=== PATIENT | male | born 1945 | race Caucasian/White ===

== ENCOUNTER 2021-10-28 13:50 | Inpatient (IN) | payer MEDICARE, OTHER ==
[~2021-10-28] VITALS: Ht 167.6 cm; Wt 54.5 kg
[~2021-10-28 13:50] MED LIST: aspirin 81mg tab.chew ONE; heparin 10,000 units/1 ML INJ ONE; heparin, porcine-25,000 units/D5-250ml premix IV ONE; nitroGLYCERIN 0.4mg SUBLingual tab SL ONE
[2021-10-28] MEDS ORDERED: ondansetron/PF 4mg/2ml inj IV ONE (14:10)
[2021-10-28] MEDS ORDERED: aspirin 81mg tab.chew PO ONE (14:20)
[2021-10-28] MEDS ORDERED: nitroGLYCERIN 0.4mg SUBLingual tab SL PRN ×2 (14:20→16:30)
[2021-10-28 14:24] LABS: BASOPHILS # (AUTO) 0.1 X10'3 (0-0.2); BASOPHILS % (AUTO) 0.9 % (0-1); EOSINOPHILS % (AUTO) 0.5 % (0-6); HEMATOCRIT 32.9 % (42.0-52.0); HEMOGLOBIN 11.2 g/dl (14.0-17.9); LYMPHOCYTES # (AUTO) 4.8 X10'3 (1.1-4.8); LYMPHOCYTES % (AUTO) 49.1 % (21-51); MEAN CORPUSCULAR HGB CONC 34.2 g/dL (33.0-36.5); MEAN CORPUSCULAR VOLUME 96.5 FL (78-98); MEAN PLATELET VOLUME 8.5 FL (7.4-10.4); MONOCYTES # (AUTO) 0.7 X10'3 (0-0.9); MONOCYTES % (AUTO) 6.8 % (2-12); NEUTROPHILS # (AUTO) 4.2 X10'3 (1.8-7.7); NEUTROPHILS % (AUTO) 42.7 % (42-75); PLATELET COUNT 303 X10'3 (140-440); RED BLOOD COUNT 3.41 X10'6 (4.70-6.10); RED CELL DISTRIBUTION WIDTH 16.1 % (11.5-14.5); WHITE BLOOD COUNT 9.8 X10'3 (4.5-11.0)
[2021-10-28 14:35] LABS: ALANINE AMINOTRANSFERASE 42 U/L (12-78); ALBUMIN 3.6 G/DL (3.4-5.0); ALBUMIN/GLOBULIN RATIO 1.1 (1.1-1.5); ALKALINE PHOSPHATASE 114 IU/L (46-116); ANION GAP 11 (8-16); ASPARTATE AMINO TRANSFERASE 30 U/L (10-37); BILIRUBIN,TOTAL 1.2 MG/DL (0.1-1.0); BLOOD UREA NITROGEN 18 MG/DL (7-18); BUN/CREATININE RATIO 17.1 (5.4-32.0); CALCIUM 8.6 MG/DL (8.5-10.1); CHLORIDE 107 MMOL/L (99-107); CREATININE 1.05 MG/DL (0.60-1.10); GLUCOSE 137 MG/DL (70-104); POTASSIUM 3.4 MMOL/L (3.5-5.1); SODIUM 141 MMOL/L (135-145); TOTAL CARBON DIOXIDE 22.7 MMOL/L (24-32); eGFR 68 ML/MIN
[2021-10-28] MEDS ORDERED: morphine 4 MG/ML inj SYRINge IV ONE (14:35)
[2021-10-28] MEDS ORDERED: iohexol 350MG/ML 100ml bottle IV ONE (14:40)
[2021-10-28] MEDS ORDERED: CLOP75TA33 PO (15:30)
[2021-10-28] MEDS ORDERED: ATOR40TA7 PO (15:30)
[2021-10-28] MEDS ORDERED: NITR0.4T51 SL (15:30)
[2021-10-28] MEDS ORDERED: LORazepam 2 mg/ml vial IV ONE (15:50)
[2021-10-28] MEDS ORDERED: potassium Cl 20 mEq SR tablet PO PRN ×2 (16:25)
[2021-10-28] MEDS ORDERED: PERFLUTREN PROTEIN-A MICROSPHR (Optison) 0.22 MG/ML 3ML VIAL IV PRN (16:25)
[2021-10-28] MEDS ORDERED: HYDROcodone/acetaminophen 5mg/325mg tablet PO PRN (16:25)
[2021-10-28] MEDS ORDERED: HYDROcodone/acetaminophen 10/325mg tab PO PRN (16:25)
[2021-10-28] MEDS ORDERED: magnesium hydroxide 30ml (MOM) UD suspension PO PRN (16:25)
[2021-10-28] MEDS ORDERED: ondansetron/PF 4mg/2ml inj IV PRN (16:25)
[2021-10-28] MEDS ORDERED: acetaminophen 325mg tablet PO PRN ×2 (16:25)
[2021-10-28] MEDS ORDERED: mag hydrox/Alum hydrox/simeth 30ml oral suspension PO PRN (16:25)
[2021-10-28] MEDS ORDERED: potassium CL 10mEq/100ml bag 100 ML IV PRN (16:25)
[2021-10-28] MEDS ORDERED: magnesium 4gm in 100ml NS 100 ML IV PRN (16:25)
[2021-10-28] MEDS ORDERED: magnesium 2GM in 50ml NS 50 ML IV PRN (16:25)
[2021-10-28] MEDS: docusate sod 100mg capsule PO SCH (20:00)
[2021-10-28] MEDS ORDERED: enoxaparin 40mg/0.4ml syringe SQ SCH (20:00)
[2021-10-28] MEDS: K and/or MAG REPLACEMENT MC SCH (20:00)
[2021-10-28 23:17] VITALS: BP 138/70
[2021-10-29] VITALS (10 sets, daily range): BP systolic 100–120; BP diastolic 50–69
[2021-10-29 06:09] LABS: BASOPHILS # (AUTO) 0.1 X10'3 (0-0.2); EOSINOPHILS # (AUTO) 0.1 X10'3 (0-0.9); MEAN CORPUSCULAR VOLUME 96.9 FL (78-98); MEAN PLATELET VOLUME 8.6 FL (7.4-10.4); MONOCYTES # (AUTO) 0.8 X10'3 (0-0.9); NEUTROPHILS # (AUTO) 3.8 X10'3 (1.8-7.7)
[2021-10-29 06:11] LABS: BASOPHILS % (AUTO) 1.1 % (0-1); EOSINOPHILS % (AUTO) 1.2 % (0-6); HEMATOCRIT 32.6 % (42.0-52.0); HEMOGLOBIN 11.3 g/dl (14.0-17.9); LYMPHOCYTES # (AUTO) 2.3 X10'3 (1.1-4.8); LYMPHOCYTES % (AUTO) 32.8 % (21-51); MEAN CORPUSCULAR HEMOGLOBIN 33.6 PG (27.0-31.0); MEAN CORPUSCULAR HGB CONC 34.7 g/dL (33.0-36.5); MONOCYTES % (AUTO) 11.7 % (2-12); NEUTROPHILS % (AUTO) 53.2 % (42-75); PLATELET COUNT 288 X10'3 (140-440); RED BLOOD COUNT 3.37 X10'6 (4.70-6.10); RED CELL DISTRIBUTION WIDTH 17.1 % (11.5-14.5); WHITE BLOOD COUNT 7.2 X10'3 (4.5-11.0)
[2021-10-29 06:15] LABS: ALANINE AMINOTRANSFERASE 37 U/L (12-78); ALBUMIN 3.1 G/DL (3.4-5.0); ALKALINE PHOSPHATASE 86 IU/L (46-116); ANION GAP 10 (8-16); ASPARTATE AMINO TRANSFERASE 26 U/L (10-37); BILIRUBIN,TOTAL 1.3 MG/DL (0.1-1.0); BLOOD UREA NITROGEN 18 MG/DL (7-18); BUN/CREATININE RATIO 18.4 (5.4-32.0); CALCIUM 8.2 MG/DL (8.5-10.1); CHLORIDE 106 MMOL/L (99-107); CHOL/HDL RATIO 1.8 (0.00-4.99); CHOLESTEROL 95 MG/DL (0-200); CREATININE 0.98 MG/DL (0.60-1.10); GLUCOSE 95 MG/DL (70-104); HDL CHOLESTEROL 54 MG/DL (35-60); LDL CHOLESTEROL 40 MG/DL (50-100); MAGNESIUM 2.2 MG/DL (1.5-2.4); POTASSIUM 4.2 MMOL/L (3.5-5.1); SODIUM 140 MMOL/L (135-145); TOTAL PROTEIN 6.3 G/DL (6.4-8.2); TRIGLYCERIDES 30 MG/DL (20-135); eGFR 74 ML/MIN
[2021-10-29 06:55] LABS: LARGE PLATELETS FEW; PLATELET ESTIMATE NORMAL
[2021-10-29 06:56] LABS: ANISOCYTOSIS 1+
[2021-10-29 06:57] LABS: ACANTHOCYTES 1+; BURR CELLS 1+; SCHISTOCYTES 1+
[2021-10-29] MEDS ORDERED: atorvastatin 20mg tablet PO SCH (08:00)
[2021-10-29] MEDS ORDERED: clopidogrel 75mg tablet PO SCH (08:00)
[2021-10-29] MEDS: K and/or MAG REPLACEMENT MC SCH (08:00)
[2021-10-29] MEDS: docusate sod 100mg capsule PO SCH (08:00)
[2021-10-29] MEDS ORDERED: aminophylline 500mg/20ml vial IV PRN (08:40)
[2021-10-29] MEDS ORDERED: metoprolol tartrate 1mg/ml inj IV PRN (08:40)
[2021-10-29] MEDS ORDERED: regadenoson 0.4mg/5ml syringe IV PRN (08:40)
--- NOTE | 2021-10-29 09:14 | NUR ---
Message left with MD Farias, pt refusing stress test. Awaiting orders.
--- NOTE | 2021-10-29 09:28 | NUR ---
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 Also, ANNA christianson, okay to give Plavix? TY. Yrn POLANCO
--- NOTE | 2021-10-29 09:40 | NUR ---
Pt agreeing to stress test, hospitalist and pearl made aware.
--- NOTE | 2021-10-29 09:52 | NUR ---
Mari to hold am meds per
--- NOTE | 2021-10-29 10:03 | NUR ---
Malnutrition consult: Pt admitted w/ chest pains w/ hx of CAD per EMR. Pt reports that he may have lost about 10lbs in the last 3 or so months because he has been very active, riding his bike frequently. However, pt states that his appetite is really good and that he "eats like a horse." Pt dose appear thin though he states that this is his baseline appearance. No edema noted. At this time, pt does not meet minimum criteria for malnutrition. Recommend liberalizing to REGULAR diet given lipids WNL except for low LDL. Addendum: 10/29/21 at [address] Amended: Links added.
--- NOTE | 2021-10-29 10:51 | NUR ---
Nuc med bedside for transport, pt on monitor.
== END 2021-10-29 17:50 | disposition home or self-care (01) | DRG 313 ==
LOC: ER 13:51 → ED HOLD 16:29 → PCU 3S 22:50
PROVIDERS: ADMIT Family Medicine; ATTEND Family Medicine
PROC: B32T1ZZ Computerized Tomography (CT Scan) of Left Pulmonary Artery using Low Osmolar Contrast (ICD-10-PCS; 2021-10-28)
PROC: B3201ZZ Computerized Tomography (CT Scan) of Thoracic Aorta using Low Osmolar Contrast (ICD-10-PCS; 2021-10-28)
PROC: B32S1ZZ Computerized Tomography (CT Scan) of Right Pulmonary Artery using Low Osmolar Contrast (ICD-10-PCS; 2021-10-28)
PROC: 4A02XM4 Measurement of Cardiac Total Activity, External Approach (ICD-10-PCS; principal; 2021-10-29)
PROC: 3E033HZ Introduction of Radioactive Substance into Peripheral Vein, Percutaneous Approach (ICD-10-PCS; 2021-10-29)
DX: R07.89 Other chest pain (principal); I25.119 Atherosclerotic heart disease of native coronary artery with unspecified angina pectoris; E78.5 Hyperlipidemia, unspecified; I35.0 Nonrheumatic aortic (valve) stenosis; E87.6 Hypokalemia; Z79.899 Other long term (current) drug therapy; Z95.5 Presence of coronary angioplasty implant and graft; Z82.49 Family history of ischemic heart disease and other diseases of the circulatory system
CPT/HCPCS: 36415; 71045; 71275; 78451; 78452; 80053; 80061; 83735; 83880; 84484; 85008; 85025; 87081; 93005; 93017; 93306; 97116; 97161; 97530; 99285; A9500; G0378; J1644; J1650; J2060; J2270; J2405; J2785; Q9967

== ENCOUNTER 2022-03-26 07:12 | Outpatient (CLI) | payer MEDICARE, OTHER ==
[2022-03-26] VITALS (22 sets, daily range): BP systolic 117–142; BP diastolic 41–93
[~2022-03-26 07:12] MED LIST changes: +ATOR40TA7 PO; +CLOP75TA33 PO; +NITR0.4T51 SL; -aspirin 81mg tab.chew ONE; -heparin 10,000 units/1 ML INJ ONE; -heparin, porcine-25,000 units/D5-250ml premix IV ONE; -nitroGLYCERIN 0.4mg SUBLingual tab SL ONE
== END 2022-03-26 23:59 | disposition home or self-care (01) ==
LOC: CARD DIAG 07:12
PROVIDERS: ATTEND Internal Medicine Cardiovascular Disease
DX: R55 Syncope and collapse (principal)
CPT/HCPCS: 93660

== ENCOUNTER 2022-09-01 11:44 | Outpatient (CLI) | payer MEDICARE, OTHER ==
[~2022-09-01 11:44] MED LIST changes: +CEFU500T66 PO; +DEXA2TAB PO
== END 2022-09-01 23:59 | disposition home or self-care (01) ==
LOC: RAD 11:44
PROVIDERS: ATTEND Internal Medicine Cardiovascular Disease
DX: I08.8 Other rheumatic multiple valve diseases (principal); I25.10 Atherosclerotic heart disease of native coronary artery without angina pectoris
CPT/HCPCS: 93306

== ENCOUNTER 2023-06-17 08:03 | Emergency (ER) | payer MEDICARE, OTHER ==
[~2023-06-17] VITALS: Ht 167.6 cm; Wt 53.5 kg
[2023-06-17] MEDS ORDERED: ondansetron/PF 4mg/2ml inj IV ONE (08:40)
[2023-06-17] MEDS ORDERED: normal saline 1000ML IV soln IVB ONE ×2 (09:00→09:05)
[2023-06-17 09:07] LABS: BASOPHILS # (AUTO) 0.1 X10'3 (0-0.2); BASOPHILS % (AUTO) 0.7 % (0-1); EOSINOPHILS % (AUTO) 0.4 % (0-6); HEMATOCRIT 32.6 % (42.0-52.0); HEMOGLOBIN 11.3 g/dl (14.0-17.9); LYMPHOCYTES # (AUTO) 3.6 X10'3 (1.1-4.8); LYMPHOCYTES % (AUTO) 40.7 % (21-51); MEAN CORPUSCULAR HEMOGLOBIN 35.1 PG (27.0-31.0); MEAN CORPUSCULAR HGB CONC 34.8 g/dL (33.0-36.5); MEAN CORPUSCULAR VOLUME 100.9 FL (78-98); MEAN PLATELET VOLUME 8.5 FL (7.4-10.4); MONOCYTES # (AUTO) 0.7 X10'3 (0-0.9); MONOCYTES % (AUTO) 7.6 % (2-12); NEUTROPHILS # (AUTO) 4.5 X10'3 (1.8-7.7); NEUTROPHILS % (AUTO) 50.6 % (42-75); PLATELET COUNT 398 X10'3 (140-440); RED BLOOD COUNT 3.23 X10'6 (4.70-6.10); RED CELL DISTRIBUTION WIDTH 16.9 % (11.5-14.5); WHITE BLOOD COUNT 8.8 X10'3 (4.5-11.0)
[2023-06-17 09:25] LABS: ALANINE AMINOTRANSFERASE 24 U/L (12-78); ALBUMIN 3.9 G/DL (3.4-5.0); ALBUMIN/GLOBULIN RATIO 1.1 (1.1-1.5); ALKALINE PHOSPHATASE 99 IU/L (46-116); ANION GAP 10 (8-16); ASPARTATE AMINO TRANSFERASE 23 U/L (10-37); BILIRUBIN,TOTAL 1.7 MG/DL (0.1-1.0); BLOOD UREA NITROGEN 9 MG/DL (7-18); BUN/CREATININE RATIO 9.2 (10.0-20.0); CALCIUM 8.9 MG/DL (8.5-10.1); CHLORIDE 102 MMOL/L (99-107); CREATININE 0.98 MG/DL (0.60-1.10); GLUCOSE 129 MG/DL (70-104); POTASSIUM 3.4 MMOL/L (3.5-5.1); SODIUM 136 MMOL/L (135-145); TOTAL CARBON DIOXIDE 24.4 MMOL/L (24-32); TOTAL PROTEIN 7.3 G/DL (6.4-8.2); eCRCL 45 ML/MIN; eGFR 74 ML/MIN
[2023-06-17 09:34] LABS: PRO BRAIN NATRIURETIC PEPTIDE 143 PG/ML (0-450)
[2023-06-17] MEDS ORDERED: potassium Cl 20 mEq SR tablet PO STA (09:42)
--- NOTE | 2023-06-17 09:55 | NUR ---
pt is resting in bed, warm blankets provided. potassium administered for low potassium. pt has no complaints of n/v or pain/discomfort at this time.
[2023-06-17] MEDS ORDERED: POTA-207 PO (09:58)
[2023-06-17 10:40] VITALS: BP 130/62; PULSE 70; RESP 13; TEMP 97.9; O2SAT 99
== END 2023-06-17 10:44 | disposition home or self-care (01) ==
LOC: ER 08:04
DX: R42 Dizziness and giddiness (principal); R00.0 Tachycardia, unspecified; E87.6 Hypokalemia; Z79.899 Other long term (current) drug therapy
CPT/HCPCS: 36415; 71045; 80053; 83880; 84484; 85025; 93005; 96361; 96374; 99285; J2405; J7030

== ENCOUNTER 2023-09-09 11:11 | Emergency (ER) | payer MEDICARE, OTHER ==
[~2023-09-09] VITALS: Ht 167.6 cm; Wt 118.9 kg
[~2023-09-09 11:11] MED LIST changes: +ATOR-411 PO; -ATOR40TA7 PO
[2023-09-09 12:12] LABS: BASOPHILS # (AUTO) 0.1 X10'3 (0-0.2); EOSINOPHILS % (AUTO) 0.5 % (0-6); MONOCYTES # (AUTO) 0.8 X10'3 (0-0.9); NEUTROPHILS # (AUTO) 4.7 X10'3 (1.8-7.7); WHITE BLOOD COUNT 8.5 X10'3 (4.5-11.0)
[2023-09-09 12:14] LABS: BASOPHILS % (AUTO) 0.8 % (0-1); HEMATOCRIT 32.4 % (42.0-52.0); LYMPHOCYTES # (AUTO) 2.9 X10'3 (1.1-4.8); LYMPHOCYTES % (AUTO) 34.4 % (21-51); MEAN CORPUSCULAR HEMOGLOBIN 34.2 PG (27.0-31.0); MEAN CORPUSCULAR HGB CONC 33.8 g/dL (33.0-36.5); MEAN CORPUSCULAR VOLUME 101.1 FL (78-98); MEAN PLATELET VOLUME 8.6 FL (7.4-10.4); MONOCYTES % (AUTO) 8.9 % (2-12); NEUTROPHILS % (AUTO) 55.4 % (42-75); PLATELET COUNT 394 X10'3 (140-440); RED BLOOD COUNT 3.21 X10'6 (4.70-6.10); RED CELL DISTRIBUTION WIDTH 15.2 % (11.5-14.5)
[2023-09-09 12:35] LABS: ALANINE AMINOTRANSFERASE 29 U/L (12-78); ALBUMIN 3.7 G/DL (3.4-5.0); ALBUMIN/GLOBULIN RATIO 1.2 (1.1-1.5); ALKALINE PHOSPHATASE 101 IU/L (46-116); ANION GAP 11 (8-16); ASPARTATE AMINO TRANSFERASE 20 U/L (10-37); BILIRUBIN,TOTAL 1.6 MG/DL (0.1-1.0); BLOOD UREA NITROGEN 13 MG/DL (7-18); BUN/CREATININE RATIO 13.8 (10.0-20.0); CALCIUM 8.4 MG/DL (8.5-10.1); CHLORIDE 106 MMOL/L (99-107); CREATININE 0.94 MG/DL (0.60-1.10); GLUCOSE 139 MG/DL (70-104); POTASSIUM 3.6 MMOL/L (3.5-5.1); SODIUM 142 MMOL/L (135-145); TOTAL CARBON DIOXIDE 24.9 MMOL/L (24-32); TOTAL PROTEIN 6.9 G/DL (6.4-8.2); eCRCL 57 ML/MIN; eGFR 77 ML/MIN
[2023-09-09 12:43] LABS: PRO BRAIN NATRIURETIC PEPTIDE 152 PG/ML (0-450)
[2023-09-09 13:08] LABS: LARGE PLATELETS FEW; PLATELET ESTIMATE NORMAL
[2023-09-09 13:11] LABS: ACANTHOCYTES 1+
[2023-09-09 13:13] LABS: SCHISTOCYTES FEW
[2023-09-09 13:14] LABS: BURR CELLS 1+
[2023-09-09 13:15] LABS: ELLIPTOCYTES FEW
[2023-09-09 13:17] LABS: HYPOCHROMASIA 1+
[2023-09-09 18:27] LABS: BILIRUBIN,URINE NEGATIVE (Neg); CLARITY,URINE CLEAR (Clear); COLOR,URINE YELLOW (Yellow); GLUCOSE, URINE NEGATIVE (Neg); KETONES,URINE NEGATIVE (Neg); LEUKOCYTE ESTERASE ,URINE NEGATIVE (Neg); NITRITES, URINE NEGATIVE (Neg); OCCULT BLOOD,URINE NEGATIVE (Neg); PROTEIN,URINE NEGATIVE (Neg); UROBILINOGEN,URINE 0.2 E.U/dL (0.2-1.0)
[2023-09-09 18:49] LABS: UA COLLECTION TYPE CLN CATCH MIDSTREAM
[2023-09-09] MEDS ORDERED: MECL-231 PO (20:59)
[2023-09-09] MEDS: meclizine 12.5mg tablet PO ONE (21:05)
[2023-09-09 21:18] VITALS: BP 120/70; PULSE 69; RESP 16; TEMP 98.2; O2SAT 99
== END 2023-09-09 21:24 | disposition home or self-care (01) ==
LOC: ER 11:12
DX: R42 Dizziness and giddiness (principal); Z79.899 Other long term (current) drug therapy
CPT/HCPCS: 36415; 70450; 71046; 80053; 81003; 83880; 84484; 85008; 85025; 93005; 99285; J8597

== ENCOUNTER 2023-09-10 12:22 | Emergency (ER) | payer MEDICARE, OTHER ==
[~2023-09-10] VITALS: Ht 167.6 cm; Wt 54.7 kg
[~2023-09-10 12:22] MED LIST changes: +MECL-231 PO
[2023-09-10 12:24] VITALS: TEMP 98
[2023-09-10 13:30] LABS: ALANINE AMINOTRANSFERASE 24 U/L (12-78); ALBUMIN 3.7 G/DL (3.4-5.0); ALBUMIN/GLOBULIN RATIO 1.1 (1.1-1.5); ALKALINE PHOSPHATASE 103 IU/L (46-116); ANION GAP 11 (8-16); ASPARTATE AMINO TRANSFERASE 18 U/L (10-37); BILIRUBIN,TOTAL 1.6 MG/DL (0.1-1.0); BLOOD UREA NITROGEN 12 MG/DL (7-18); BUN/CREATININE RATIO 11.8 (10.0-20.0); CALCIUM 8.3 MG/DL (8.5-10.1); CHLORIDE 107 MMOL/L (99-107); CREATININE 1.02 MG/DL (0.60-1.10); GLUCOSE 117 MG/DL (70-104); POTASSIUM 4.1 MMOL/L (3.5-5.1); SODIUM 142 MMOL/L (135-145); TOTAL CARBON DIOXIDE 24.5 MMOL/L (24-32); eCRCL 45 ML/MIN; eGFR 70 ML/MIN
[2023-09-10 14:09] LABS: BASOPHILS # (AUTO) 0.1 X10'3 (0-0.2); EOSINOPHILS % (AUTO) 0.7 % (0-6); LYMPHOCYTES # (AUTO) 2.8 X10'3 (1.1-4.8); RED CELL DISTRIBUTION WIDTH 15.3 % (11.5-14.5)
[2023-09-10 14:11] LABS: BASOPHILS % (AUTO) 0.8 % (0-1); HEMATOCRIT 31.4 % (42.0-52.0); HEMOGLOBIN 10.9 g/dl (14.0-17.9); LYMPHOCYTES % (AUTO) 44.1 % (21-51); MEAN CORPUSCULAR HEMOGLOBIN 34.7 PG (27.0-31.0); MEAN CORPUSCULAR HGB CONC 34.8 g/dL (33.0-36.5); MEAN CORPUSCULAR VOLUME 99.6 FL (78-98); MEAN PLATELET VOLUME 8.2 FL (7.4-10.4); MONOCYTES # (AUTO) 0.6 X10'3 (0-0.9); MONOCYTES % (AUTO) 10.1 % (2-12); NEUTROPHILS # (AUTO) 2.8 X10'3 (1.8-7.7); NEUTROPHILS % (AUTO) 44.3 % (42-75); PLATELET COUNT 387 X10'3 (140-440); RED BLOOD COUNT 3.16 X10'6 (4.70-6.10); WHITE BLOOD COUNT 6.4 X10'3 (4.5-11.0)
[2023-09-10 14:36] LABS: LARGE PLATELETS FEW; PLATELET ESTIMATE NORMAL
[2023-09-10 14:37] LABS: ACANTHOCYTES 1+; ANISOCYTOSIS 1+; BURR CELLS 1+; SCHISTOCYTES FEW
[2023-09-10] MEDS: proparacaine 0.5% ophthalmic drops 15ml EACHEYE ONE (15:20)
[2023-09-10 16:28] VITALS: BP 155/67; PULSE 83; RESP 17; O2SAT 98
== END 2023-09-10 16:42 | disposition home or self-care (01) ==
LOC: ER 12:23
DX: H57.12 Ocular pain, left eye (principal); E78.00 Pure hypercholesterolemia, unspecified; Z79.899 Other long term (current) drug therapy; Z79.2 Long term (current) use of antibiotics
CPT/HCPCS: 36415; 80053; 85008; 85025; 85651; 86140; 99283